=== PATIENT | male | born 2000 | race Caucasian/White ===

== ENCOUNTER 2018-08-14 04:28 | Emergency (ER) | payer OTHER ==
[2018-08-14] MEDS ORDERED: ACETAMINOPHEN 325 MG TABLET PO ONE (05:35)
--- NOTE | 2018-08-14 05:44 | RADIOLOGY REPORT (SQ) ---
EXAM DESCRIPTION: XR HAND 3 OR MORE VIEWS COMPLETED DATE/TME: 08/14/2018 04:38 CLINICAL HISTORY: 18 years, Male, fell on it playing volleyball COMPARISON: None. NUMBER OF VIEWS: Three TECHNIQUE: Three views of the right hand LIMITATIONS: None. FINDINGS: There is a displaced transverse fracture involving the midshaft of the fourth metacarpal with mild dorsal apex angulation. No other fracture is identified. The joint spaces are preserved. No radiopaque foreign body. IMPRESSION: Mildly displaced transverse fracture of the fourth metacarpal with dorsal apex angulation. copyright 2010 [employer]- All Rights Reserved
[2018-08-14] MEDS ORDERED: OXYCODONE HCL IR 5 MG TABLET PO ONE (07:06)
[2018-08-14] MEDS: BUPIVACAINE HCL 0.5 % INJ/PF 30 ML SDV INJ ONE ×2 (07:17→07:25)
--- NOTE | 2018-08-14 07:43 | PDOC CONSULTATION ---
Consultation Consult Date: 08/14/18 Consult reason:: Patient is a 18-year-old white male [place] from [place] who sustained a right hand injury while playing volleyball when his hand hit the sand. He presented to the emergency room where a displaced diaphyseal right fourth metacarpal fracture was identified. Orthopedics is consulted for fracture management. History of Present Illness History of Present Illness: MICK EVANS is a 18 year old male the right fourth metacarpal fracture as above Past Medical History Cardiac Medical History: Reports: None Past Surgical History Past Surgical History: Reports: None Social History Information Source: Patient, Parent, [facility] Records Lives with: Other - [place] Smoking Status: Never Smoker Hx Recreational Drug Use: No Hx Prescription Drug Abuse: No Family History Family History: Reviewed & Not Pertinent Parental Family History Reviewed: No Children Family History Reviewed: No Sibling(s) Family History Reviewed.: No Medication/Allergy Allergies/Adverse Reactions: No Known Allergies Allergy (Unverified 08/14/18 04:36) Review of Systems All systems: as per [facility] Physical Exam Vital Signs: Temp Pulse Resp BP Pulse Ox 37.1 C 53 L 16 124/80 96 08/14/18 06:55 08/14/18 06:55 08/14/18 06:55 08/14/18 06:55 08/14/18 06:55 Intake & Output 08/13/18 08/14/18 08/15/18 06:59 06:59 06:59 Weight 68 kg Physical Exam: Patient's trim young white male accompanied by his mother. 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 Range of motion is not assessed. Distal neurovascular examination to the fingers is intact. Neurological exam: PRESENT: alert, awake, oriented to person, oriented to place, oriented to time, oriented to situation. ABSENT: motor sensory deficit Psychiatric exam: PRESENT: appropriate affect, normal mood. ABSENT: homicidal ideation, suicidal ideation Skin exam: PRESENT: dry, intact, warm. ABSENT: cyanosis, rash Results Impressions: Hand X-Ray 08/14/18 04:38 IMPRESSION: Mildly displaced transverse fracture of the fourth metacarpal with dorsal apex angulation. copyright 2011 [employer]- All Rights Reserved Status: Imported from PACS Assessment & Plan - Diagnosis (1) Metacarpal bone fracture Qualifiers: Encounter type: initial encounter Metacarpal bone: fourth Fracture type: closed Metacarpal location: shaft Fracture alignment: displaced Laterality: right Qualified Code(s): S62.324A - Displaced fracture of shaft of fourth metacarpal bone, right hand, initial encounter for closed fracture Is this a current diagnosis for this admission?: Yes Plan: 18-year-old white male with a right fourth metatarsal carpal fracture which is transverse and displaced. I do not think this fracture is good to be stable with a closed reduction. I discussed the possibility of an open reduction internal fixation of the fracture while the patient is here. He plans to return to [place] on Saturday. The alternative will be to splinted and he can seek care when he returns to [place]. The patient opts for the former. He will tentatively be scheduled for an open reduction internal fixation under choice anesthesia with Dr. martin on Saturday afternoon. He will present to the office this morning for preoperative arrangements. - Time Time Spent: 50 to 70 Minutes Anticipated discharge: Home, Other Within: Other
--- NOTE | 2018-08-14 07:43 | ER Document Report ---
ED General - General Chief Complaint: Hand Injury Stated Complaint: HAND INJURY Time Seen by Provider: 08/14/18 06:35 Primary Care Provider: DOUGLAS BANKS MD [ACTIVE STAFF] - 08/14/18 REGIS BARKSDALE DO [ACTIVE STAFF] - 08/14/18 TRAVEL OUTSIDE OF THE [place] IN LAST 30 DAYS: No - HPI Patient complains to provider of: Right hand injury Notes: Patient coming in for right hand injury. [place], returned earlier today came to straight to the ER for further evaluation of his right hand patient states diving to stand playing volleyball when he injured his right hand. This is approximate 2 days ago. Patient otherwise denies any numbness or tingling denies any other past medical history. Patient resting comfortably upon my evaluation. - Related Data Allergies/Adverse Reactions: No Known Allergies Allergy (Unverified 08/14/18 04:36) Past Medical History - Social History Smoking Status: Never Smoker Family History: Reviewed & Not Pertinent Patient has suicidal ideation: No Patient has homicidal ideation: No Renal/ Medical History: Denies: Hx Peritoneal Dialysis Review of Systems - Review of Systems Constitutional: No symptoms reported EENT: No symptoms reported Cardiovascular: No symptoms reported Respiratory: No symptoms reported Gastrointestinal: No symptoms reported Genitourinary: No symptoms reported Male Genitourinary: No symptoms reported Musculoskeletal: Other - Hand pain Skin: No symptoms reported Hematologic/Lymphatic: No symptoms reported Neurological/Psychological: No symptoms reported -: Yes All other systems reviewed and negative Physical Exam - Vital signs Vitals: Temp Pulse Resp BP Pulse Ox 98.4 F 62 17 169/72 H 100 08/14/18 04:40 08/14/18 04:40 08/14/18 04:40 08/14/18 04:40 08/14/18 04:40 Interpretation: Normal - General General appearance: Appears well, Alert - HEENT Head: Normocephalic, Atraumatic Eyes: Normal Pupils: PERRL - Respiratory Respiratory status: No respiratory distress Chest status: Nontender Breath sounds: Normal Chest palpation: Normal - Cardiovascular Rhythm: Regular Heart sounds: Normal auscultation Murmur: No - Abdominal Inspection: Normal Distension: No distension Bowel sounds: Normal Tenderness: Nontender Organomegaly: No organomegaly - Back Back: Normal, Nontender - Extremities General upper extremity: Normal color, Normal ROM, Normal temperature, Other - Left hand unaffected. Patient is right-hand is obvious swelling to the dorsum of the hand. Capillary refill is intact in all 5 digits. Range of motion is painful of the digits. Patient does have tenderness along palpation of the fourth digit General lower extremity: Normal inspection, Nontender, Normal color, Normal ROM, Normal temperature, Normal weight bearing. No: Ken's sign - Neurological Neuro grossly intact: Yes Cognition: Normal Orientation: AAOx4 [place] Coma Scale Eye Opening: Spontaneous [place] Coma Scale Verbal: Oriented [place] Coma Scale Motor: Obeys Commands [place] Coma Scale Total: 15 Speech: Normal Motor strength normal: LUE, RUE, LLE, RLE Sensory: Normal - Psychological Associated symptoms: Normal affect, Normal mood - Skin Skin Temperature: Warm Skin Moisture: Dry Skin Color: Normal Course - Re-evaluation Re-evalutation: 08/14/18 12:41 X-ray shows metacarpal fracture with displacement. Initially was planned to block the patient for realignment however did call Dr. Banks sales enablement consultant for orthopedics recommended more likely operative management however the patient initially had a stated plan to travel back to [facility] today. I did re-conference with the family now stating that the plan is for the patient to drive back to [facility] on Saturday I did recontact Dr. Banks he was down at bedside to evaluate the patient patient will follow-up in his clinic to schedule surgery with Dr. Barksdale patient will be placed in a splint here splint was evaluated document by myself. No other critical pathology seen patient discharged home. - Vital Signs Vital signs: Temp Pulse Resp BP Pulse Ox 98.7 F 76 17 132/81 H 100 08/14/18 06:55 08/14/18 08:05 08/14/18 08:05 08/14/18 08:05 08/14/18 08:05 Procedures - Immobilization Right Hand Immobilizer type: Ulnar - unlar gutter Performed by: Provider Post-Proc Neuro Vasc Exam: Normal Alignment checked and good: Yes - She Discharge - Discharge Clinical Impression: Closed fracture of 4th metacarpal Qualifiers: Encounter type: initial encounter Metacarpal location: shaft Fracture alignment: displaced Laterality: right Qualified Code(s): S62.324A - Displaced fracture of shaft of fourth metacarpal bone, right hand, initial encounter for closed fracture Disposition: HOME, SELF-CARE Instructions: Fractured Metacarpal ([facility]) Additional Instructions: Please keep your splint clean and dry. Please go directly to the orthopedic office for further evaluation Take Tylenol Motrin for pain control Take the Ultram as prescribed for severe pain Prescriptions: Ibuprofen [Motrin 600 mg Tablet] 600 mg PO Q8HP PRN #21 tablet PRN Reason: Tramadol HCl [Ultram 50 mg Tablet] 50 mg PO ASDIR PRN #20 tablet PRN Reason: Referrals: REGIS BARKSDALE DO [ACTIVE STAFF] - 08/14/18 DOUGLAS BANKS MD [ACTIVE STAFF] - 08/14/18
[2018-08-14 08:24] VITALS: BP 132/81
== END 2018-08-14 08:05 | disposition home or self-care (01) ==
LOC: ER 04:28
DX: S62.324A Displaced fracture of shaft of fourth metacarpal bone, right hand, initial encounter for closed fracture (principal); W22.8XXA Striking against or struck by other objects, initial encounter; Y93.68 Activity, volleyball (beach) (court)
CPT/HCPCS: 99284; J3490